=== PATIENT | male | born 1990 | race Caucasian/White ===

== ENCOUNTER 2018-05-19 18:53 | Emergency (ER) | payer OTHER ==
[~2018-05-19] VITALS: Ht 190.5 cm; Wt 172.4 kg
[2018-05-19] MEDS ORDERED: MEDROLDOSEPACK PO (19:07)
[2018-05-19] MEDS ORDERED: IBUPROFEN 800800 M1 PO (19:07)
[2018-05-19] MEDS ORDERED: ROBAXIN500 MG PO (19:07)
[2018-05-19 19:20] VITALS: BP 171/95
== END 2018-05-19 19:21 | disposition home or self-care (01) ==
LOC: M.ERS 18:53
DX: M54.41 Lumbago with sciatica, right side (principal); F17.200 Nicotine dependence, unspecified, uncomplicated